=== PATIENT | female | born 1990 | race Caucasian/White ===

== ENCOUNTER 2023-01-15 11:00 | Emergency (ER) | payer MEDICAID ==
[~2023-01-15] VITALS: Ht 175.3 cm; Wt 93.0 kg
--- NOTE | 2023-01-15 12:00 | NUR ---
CHEST XRAY TAKEN.
--- NOTE | 2023-01-15 12:20 | NUR ---
COLLECTED COVID AND INFLUENZA SAMPLES.
[2023-01-15 12:41] VITALS: BP 121/67
--- NOTE | 2023-01-15 12:47 | NUR ---
COLLECTED URINE SAMPLE.
[2023-01-15] MEDS ORDERED: FLUC150T PO (14:29)
[2023-01-15] MEDS ORDERED: NITR100C6 PO (14:29)
--- NOTE | 2023-01-15 14:35 | NUR ---
Patient discharged to home in stable condition. Written and verbal after care instructions given. Patient verbalizes understanding of instruction.
[2023-01-15 14:58] LABS: BILIRUBIN,URINE NEGATIVE (NEGATIVE); COLOR,URINE YELLOW (YELLOW); LEUKOCYTE ESTERASE ,URINE 1+ (NEGATIVE); NITRITE, URINE NEGATIVE (NEGATIVE); PH,URINE 6.5 (5.0-8.0); PROTEIN,URINE NEGATIVE (NEGATIVE); UGLUCOSE NEGATIVE (NEGATIVE); UROBILINOGEN,URINE 0.2 EU/dL (0.2)
[2023-01-15 16:11] LABS: BACTERIA,URINE 1+ /HPF (None Seen); MUCUS,URINE Many /LPF (None Seen)
== END 2023-01-15 14:34 | disposition home or self-care (01) ==
LOC: ER 11:19
DX: J06.9 Acute upper respiratory infection, unspecified (principal); N39.0 Urinary tract infection, site not specified; N76.0 Acute vaginitis; R05.9 Cough, unspecified; Z20.822 Contact with and (suspected) exposure to COVID-19; Z90.49 Acquired absence of other specified parts of digestive tract
CPT/HCPCS: 99284; 71045; 87426; 87804 ×2; 87086; 81001; C9803